=== PATIENT | male | born 1985 | race Two or more races ===

== ENCOUNTER 2022-11-02 11:02 | Outpatient (CLI) | payer OTHER | END 2022-11-02 11:04 | disposition home or self-care (01) | LOC: SONOGRAMA 11:02 | PROVIDERS: ATTEND Pathology Anatomic Pathology & Clinical Pathology | DX: D34 Benign neoplasm of thyroid gland (principal); E04.9 Nontoxic goiter, unspecified; E04.8 Other specified nontoxic goiter ==

== ENCOUNTER 2024-08-07 10:52 | Outpatient (CLI) | payer OTHER | END 2024-08-07 10:57 | disposition home or self-care (01) | LOC: SONOGRAMA 10:52 | PROVIDERS: ATTEND Pathology Anatomic Pathology & Clinical Pathology | DX: D34 Benign neoplasm of thyroid gland (principal); E04.8 Other specified nontoxic goiter ==